=== PATIENT | female | born 1985 | race American Indian/Alaskan Native ===

== ENCOUNTER 2018-03-10 09:23 | Emergency (ER) | payer OTHER ==
[2018-03-10 09:38] VITALS: BP 125/87
[2018-03-10] MEDS ORDERED: MOTRIN PO ONE (10:42)
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
== END 2018-03-10 11:15 | disposition home or self-care (01) ==
LOC: ED 09:23
DX: S13.4XXA Sprain of ligaments of cervical spine, initial encounter (principal); Z88.6 Allergy status to analgesic agent; V89.2XXA Person injured in unspecified motor-vehicle accident, traffic, initial encounter; Y93.89 Activity, other specified; Y99.8 Other external cause status; Y92.411 Interstate highway as the place of occurrence of the external cause
CPT/HCPCS: 99283